=== PATIENT | male | born 1990 | race Caucasian/White ===

== ENCOUNTER 2022-08-09 20:28 | Emergency (ER) | payer MEDICAID, OTHER ==
[~2022-08-09] VITALS: Ht 190.5 cm; Wt 81.8 kg
[2022-08-10 02:40] VITALS: BP 135/74
== END 2022-08-10 02:44 | disposition home or self-care (01) ==
LOC: ER 20:28 → EDBD 20:28 → ER 08-10 02:44
DX: F11.10 Opioid abuse, uncomplicated (principal); F17.210 Nicotine dependence, cigarettes, uncomplicated; R07.89 Other chest pain; R51.9 Headache, unspecified
CPT/HCPCS: 70450; 71045

== ENCOUNTER 2022-08-10 07:52 | Emergency (ER) | payer MEDICAID ==
[~2022-08-10] VITALS: Ht 190.5 cm; Wt 79.4 kg
[2022-08-10 07:57] VITALS: BP 150/82
[2022-08-10 08:42] LABS: Basophils # (auto) 0 10 ^3/uL (0-0.2); Basophils % (auto) 0.4 % (0.0-2.0); Eosinophils # (auto) 0 10 ^3/uL (0-0.8); Eosinophils % (auto) 0.3 % (0.0-7.0); Hematocrit 42.3 % (41.0-53.0); Hemoglobin 14.6 g/dL (13.5-17.5); Lymphocytes # (auto) 1.2 10 ^3/uL (0.4-5.4); Lymphocytes % (auto) 16.3 % (10.0-50.0); Mean Corpuscular Hemoglobin 31.6 pg (28.0-32.0); Mean Corpuscular Hgb Conc. 34.5 g/dL (32.0-36.0); Mean Corpuscular Volume 91.5 fL (80.0-100.0); Monocytes # (auto) 0.5 10 ^3/uL (0-1.3); Monocytes % (auto) 6.8 % (0.0-12.0); Neutrophils # (auto) 5.5 10 ^3/uL (1.6-8.6); Neutrophils % (auto) 76.2 % (37.0-80.0); Red Blood Cells 4.63 10^6/uL (4.5-5.90); White Blood Cell 7.1 10^3/uL (4.4-10.8)
[2022-08-10 09:08] LABS: Albumin 4.1 g/dL (3.4-5.0); Calcium 8.8 mg/dL (8.5-10.1); Potassium 3.2 mmol/L (3.5-5.1)
[2022-08-10 09:11] LABS: BUN/Creatinine Ratio 10.6 (10.0-20.0); Bilirubin, Total 0.3 mg/dL (0.2-1.0); Total Protein 7.9 g/dL (6.4-8.2)
[2022-08-10] MEDS ORDERED: POTASSIUM EFFERVESENT TAB 25 MEQ PO ONE (09:45)
== END 2022-08-10 10:25 | disposition home or self-care (01) ==
LOC: ER 07:52
DX: E87.6 Hypokalemia (principal); F11.10 Opioid abuse, uncomplicated; F17.210 Nicotine dependence, cigarettes, uncomplicated
CPT/HCPCS: 36415; 70450; 80053; 85025